=== PATIENT | female | born 1990 | race Two or more races ===

== ENCOUNTER 2018-05-04 14:16 | Emergency (ER) | payer SELFPAY ==
[~2018-05-04] VITALS: Ht 170.2 cm; Wt 93.9 kg
--- NOTE | 2018-05-04 14:36 | NUR ---
BIB SELF C/O N/V W/ [facility] SINCE LAST NIGHT. STATES PAIN IS THROBBING AND 6/10. PT IS AMB, AOX4, VSS, RR EVEN AND UNLABORED. SKIN INTACT, NO ACUTE DISTRESS NOTED. PT MADE COMFORTABLE AND READY FOR EVAL.
[2018-05-04] MEDS ORDERED: METOCLOPRAMIDE HCL 10 MG/2 ML VIAL IV ONE (15:00)
[2018-05-04] MEDS ORDERED: IV NS 0.9% 1,000 ML BAG IV ONE (15:00)
[2018-05-04] MEDS ORDERED: diphenhydrAMINE HCL 50 MG/ML VIAL IV ONE (15:00)
[2018-05-04] MEDS ORDERED: KETOROLAC TROMETHAMINE INJ 30 MG/ML VIAL IV ONE (15:00)
[2018-05-04] MEDS ORDERED: KETOROLAC TROMETHAMINE INJ 30 MG/ML VIAL ONE (15:04)
[2018-05-04] MEDS ORDERED: METOCLOPRAMIDE HCL 10 MG/2 ML VIAL ONE (15:04)
[2018-05-04] MEDS ORDERED: diphenhydrAMINE HCL 50 MG/ML VIAL ONE (15:04)
[2018-05-04 15:30] LABS: APPEARANCE,URINE Clear (CLEAR); BILIRUBIN,URINE Negative (NEGATIVE); BLOOD, URINE Negative Ery/uL (NEGATIVE); COLOR,URINE Yellow (YELLOW); KETONES,URINE Negative (NEGATIVE); LEUKOCYTE ESTERASE ,URINE Negative (NEGATIVE); NITRITE, URINE Negative (NEGATIVE); PH,URINE 8.5 (5.0-8.0); PROTEIN,URINE Trace mg/dl (NEGATIVE); UGLUCOSE Negative (NEGATIVE); UROBILINOGEN,URINE 0.2 EU/dL (0.2)
--- NOTE | 2018-05-04 16:32 | NUR ---
Patient is resting comfortably in bed with eyes closed. Easily aroused. VSS. STATES HEADACHE IS COMPLETELY GONE
--- NOTE | 2018-05-04 17:00 | NUR ---
IV removed. Catheter intact and site benign. Pressure and 4x4 applied to site. No bleeding noted. Patient discharged to home in stable condition. Written and verbal after care instructions given. Patient verbalizes understanding of instruction.
[2018-05-04 17:21] VITALS: BP 128/80
== END 2018-05-04 17:00 | disposition home or self-care (01) ==
LOC: ER 14:20
DX: G43.909 Migraine, unspecified, not intractable, without status migrainosus (principal); R11.2 Nausea with vomiting, unspecified; J45.909 Unspecified asthma, uncomplicated; Z87.440 Personal history of urinary (tract) infections; Z98.890 Other specified postprocedural states; Z88.1 Allergy status to other antibiotic agents; Z60.2 Problems related to living alone
CPT/HCPCS: 81001; 84703; 96361; 96374; 96375; 99283; A4606; J1200; J1885; J2765; J7030; 81000-TC